=== PATIENT | female | born 2000 | race American Indian/Alaskan Native ===

== ENCOUNTER 2019-12-24 10:02 | Inpatient (IN) | payer MEDICAID ==
[2019-12-24] MEDS ORDERED: Sodium Chloride 0.9% 10 ML Syringe FLUSH PRN (11:25)
[2019-12-24] MEDS ORDERED: Lidocaine 1% 50 ML MDV INJECT PRN (11:25)
[2019-12-24] MEDS ORDERED: Sodium Chloride 0.9% 2.5 ML Syringe FLUSH PRN (11:25)
[2019-12-24] MEDS ORDERED: Water For Irrigation,Sterile 1,000 ML Container IRR PRN (11:25)
[2019-12-24] MEDS ORDERED: Misoprostol 200 MCG Tab PO PRN (11:25)
[2019-12-24] MEDS ORDERED: Methylergonovine 0.2 MG/1 ML Amp IM PRN (11:25)
[2019-12-24] MEDS ORDERED: Nalbuphine 10 MG/1 ML Vial IVPUSH PRN (11:25)
[2019-12-24] MEDS ORDERED: Butorphanol 1 MG/ML SDV IVPUSH PRN (11:25)
[2019-12-24] MEDS ORDERED: Sodium Chloride 0.9% 10 ML SDV IV PRN (11:25)
[2019-12-24] MEDS ORDERED: Carboprost Tromethamine 250 MCG/1 ML Amp IM PRN (11:25)
[2019-12-24] MEDS ORDERED: Tranexamic Acid 1,000 MG in Sodium Chloride 0.9% 100 ML IV PRN (11:25)
[2019-12-24] MEDS ORDERED: Oxytocin/0.9 % Sodium Chloride 30 UNIT/500 ML BAG IV SCH ×2 (11:30→16:30)
[2019-12-24] MEDS ORDERED: Terbutaline 1 MG/ML SDV SUBCUT PRN (16:20)
[2019-12-24] MEDS: Lactated Ringers 1,000 ML IV SCH ×2 (17:15→20:11)
[2019-12-24] MEDS ORDERED: Benzocaine/Menthol 20%-0.5% Spray 78 GM Cannister TOP PRN (21:44)
[2019-12-24] MEDS ORDERED: Bisacodyl 10 MG Supp RECTAL PRN (21:44)
[2019-12-24] MEDS ORDERED: oxyCODONE 5 MG Tab PO PRN (21:44)
[2019-12-24] MEDS ORDERED: Docusate Sodium 100 MG Cap PO PRN (21:44)
[2019-12-24] MEDS ORDERED: Acetaminophen 500 MG Tab PO PRN (21:44)
[2019-12-24] MEDS ORDERED: Witch Hazel Medicated Pads 40/Jar TOP PRN (21:44)
[2019-12-24] MEDS ORDERED: Ibuprofen 800 MG Tab PO PRN (21:44)
[2019-12-24] MEDS ORDERED: Lanolin 100% Cream 7 GM Tube TOP PRN (21:44)
--- NOTE | 2019-12-24 21:51 | PCM.DEL ---
L & D Note - General Info Date of Service: 12/24/19 Mother's Due Date: [birth year] - Delivery Note Labor: Spontaneous, Augmented by Oxytocin Delivery Outcome: Livebirth Infant Delivery Method: Spontaneous Vaginal Delivery-Single Presentation: Vertex Nuchal Cord: None Anesthesia Type: None Episiotomy Type: None Laceration: Labial (bilateral, hemostatic without repair) Placenta: Intact, Spontaneous Cord: 3 Vessels Resuscitation Needed: No : Stimulated, Warmed Score 1 min: 8 Score 5 min: 9 - General Info Date of Service: 12/24/19 - Patient Data Weight - Most Recent: 69.853 kg I&O - Last 24 Hours: Intake & Output 12/24/19 12/24/19 12/24/19 06:59 14:59 22:59 Intake Total 1000 Balance 1000 Lab Results Last 24 Hours: Laboratory Results - last 24 hr 12/24/19 12/24/19 12/24/19 Range/Units 10:20 11:57 11:57 WBC 6.25 (4.0-11.0) K/uL RBC 3.66 L (4.30-5.90) M/uL Hgb 9.5 L (12.0-16.0) g/dL Hct 30.8 L (36.0-46.0) % MCV 84.2 (80.0-98.0) fL MCH 26.0 L (27.0-32.0) pg MCHC 30.8 L (31.0-37.0) g/dL RDW Std Deviation 83.7 H (28.0-62.0) fl RDW Coeff of Dread 29 H (11.0-15.0) % Plt Count 282 (150-400) K/uL MPV 9.30 (7.40-12.00) fL Nucleated RBC % 0.0 /100WBC Nucleated RBCs # 0 K/uL Membrane Rupture POSITIVE Blood Type A POSITIVE Antibody Screen NEGATIVE Med Orders - Current: Current Medications Acetaminophen (Tylenol Extra Strength) 1,000 mg PO Q6H PRN PRN Reason: Pain Benzocaine/Menthol (Dermoplast Pain Relief 20%-0.5% [place]) 78 gm TOP ASDIRECTED PRN PRN Reason: Perineal Comfort Measure Bisacodyl (Dulcolax) 10 mg RECTAL ONETIME PRN PRN Reason: Constipation Butorphanol Tartrate (Stadol) 1 mg IVPUSH Q1H PRN PRN Reason: Pain Last Admin: 12/24/19 19:55 Dose: 1 mg Carboprost Tromethamine (Hemabate Ds) 250 mcg IM ASDIRECTED PRN PRN Reason: Post Hemorrhage Docusate Sodium (Colace) 100 mg PO BID PRN PRN Reason: Constipation Emollient Ointment (Lansinoh Hpa) 0 gm TOP ASDIRECTED PRN PRN Reason: Sore Nipples Ferrous Sulfate (Ferrous Sulfate) 325 mg PO DAILY LAKEISHA Tranexamic Acid 1,000 mg/ (Sodium Chloride) 110 mls @ 660 mls/hr IV ONETIME PRN PRN Reason: Bleeding Lactated Ringer's (Ringers, Lactated) 1,000 mls @ 150 mls/hr IV ASDIRECTED LAKEISHA Last Admin: 12/24/19 20:11 Dose: 150 mls/hr Oxytocin/Sodium Chloride (Oxytocin 30 Unit/500 Ml-Ns) 30 unit in 500 mls @ 500 mls/hr IV TITRATE LAKEISHA Oxytocin/Sodium Chloride (Oxytocin 30 Unit/500 Ml-Ns) 30 unit in 500 mls @ 2 mls/hr IV TITRATE LAKEISHA; Protocol Last Titration: 12/24/19 18:45 Dose: 10 munits/min, 10 mls/hr Ibuprofen (Motrin) 800 mg PO Q8H PRN PRN Reason: Pain Lidocaine HCl (Xylocaine 1%) 50 ml INJECT ONETIME PRN PRN Reason: Laceration repair Methylergonovine Maleate (Methergine) 0.2 mg IM ASDIRECTED PRN PRN Reason: Post Hemorrhage Misoprostol (Cytotec) 200 mcg PO ONETIME PRN PRN Reason: Post Hemorrhage Nalbuphine HCl (Nubain) 10 mg IVPUSH Q1H PRN PRN Reason: Pain (severe 7-10) Oxycodone HCl (Oxycodone) 5 mg PO Q2H PRN PRN Reason: Pain Sodium Chloride (Saline Flush) 10 ml FLUSH ASDIRECTED PRN PRN Reason: Keep Vein Open Sodium Chloride (Saline Flush) 2.5 ml FLUSH ASDIRECTED PRN PRN Reason: Keep Vein Open Sodium Chloride (Normal Saline) 10 ml IV ASDIRECTED PRN PRN Reason: IV Use Sterile Water (Sterile Water For Irrigation) 1,000 ml IRR ASDIRECTED PRN PRN Reason: delivery Last Admin: 12/24/19 21:13 Dose: 1,000 ml Terbutaline Sulfate (Brethine) 0.25 mg SUBCUT ASDIRECTED PRN PRN Reason: Tacysystole Witch Jumana (Tucks) 1 pad TOP ASDIRECTED PRN PRN Reason: comfort care - Problem List & Annotations (1) Vaginal delivery SNOMED Code(s): 900994926 Code(s): O80 - ENCOUNTER FOR FULL-TERM UNCOMPLICATED DELIVERY Status: Acute Current Visit: Yes - Problem List Review Problem List Initiated/Reviewed/Updated: Yes - My Orders Last 24 Hours: My Active Orders 12/24/19 21:44 Patient Status [ADT] Routine May Shower [RC] ASDIRECTED Notify Provider Vital Signs [RC] ASDIRECTED Up ad Ariadna [RC] ASDIRECTED Vital Signs [RC] PER UNIT ROUTINE Acetaminophen [Tylenol Extra Strength] 1,000 mg PO Q6H PRN Benzocaine/Menthol [Dermoplast Pain Relief 20%-0.5% [place]] 78 gm TOP ASDIRECTED PRN Docusate Sodium [Colace] 100 mg PO BID PRN Ibuprofen [Motrin] 800 mg PO Q8H PRN Lanolin [Lansinoh HPA] See Dose Instructions TOP ASDIRECTED PRN bisacodyL [Dulcolax] 10 mg RECTAL ONETIME PRN oxyCODONE 5 mg PO Q2H PRN witch Jumana [Tucks] 1 pad TOP ASDIRECTED PRN Assess Lochia [WOMSER] Per Unit Routine Assess Uterine Involution [WOMSER] Per Unit Routine Breast Pump [WOMSER] Per Unit Routine Ice Therapy [OM.PC] Per Unit Routine Perineal Care [OM.PC] Per Unit Routine Peripheral IV Discontinue [OM.PC] Routine Sitz Bath [OM.PC] Per Unit Routine 12/24/19 21:45 Cooling Warming Measures [RC] ASDIRECTED 12/24/19 Dinner Regular Diet [DIET] 12/25/19 05:11 HEMOGLOBIN/HEMATOCRIT,HH [HEME] Timed 12/25/19 09:00 Ferrous Sulfate 325 mg PO DAILY - Assessment Assessment:: 19yo s/p at 37w1d - Plan Plan:: Admit to unit for routine care. Continue iron supplementation for anemia. Adoptive mother to breastfeed.
--- NOTE | 2019-12-24 22:43 | OR ---
SURGEON: Maddie Tyler MD DATE OF PROCEDURE: 12/24/2019 PREOPERATIVE DIAGNOSES: 1. A 19-year-old, G3, P 1-0-1-1, at 37 weeks and 1 day's gestation. 2. Spontaneous rupture of membranes. 3. Anemia. 4. Group B Streptococcus negative. POSTOPERATIVE DIAGNOSES: 1. A 19-year-old, G3, P 2-0-1-2, status post spontaneous vaginal delivery at 37 weeks and 1 day's gestation. 2. Anemia. 3. Group B Streptococcus negative. PROCEDURE: Spontaneous vaginal delivery. ANESTHESIA: None. PRIMARY SURGEON: Maddie Tyler MD ESTIMATED BLOOD LOSS: 300 mL. FINDINGS: Live female in cephalic presentation. score of 8 and 9 at one and five minutes respectively. Weight pending. Bilateral labial lacerations, hemostatic without repair. Placenta intact and with 3-vessel cord. Baby up for adoption. INDICATIONS: This is a 19-year-old, G3, P 1-0-1-1, who presented at 37 weeks and 1 day's gestation complaining of leakage of fluid. Upon presentation, AmniSure was found to be positive. She was 1 to 2 cm dilated. After several hours, she was started on Pitocin for augmentation of labor. She progressed to complete cervical dilation, and I was called to the room. DESCRIPTION OF PROCEDURE: I arrived to the room with the skull at +4 station. The head was delivered. The patient pushed to a spontaneous vaginal delivery of live female infant. The head was delivered followed quickly by the shoulders and remainder of the body. The 's nose and mouth were suctioned with bulb suction, and the infant dried and stimulated on my lap. After approximately 30 seconds, the cord was clamped and cut. The infant was handed off to the awaiting nurse. The perineum was inspected and bilateral labial lacerations were noted. These were hemostatic without repair. The placenta then delivered via the Tucker-Marie maneuver, intact and with 3-vessel cord. Fundus was firm below the umbilicus. The patient and baby tolerated the delivery well. [id number] / MODL /[id number]
[2019-12-25] MEDS ORDERED: Misoprostol 200 MCG Tab RECTAL STA (01:52)
[2019-12-25] MEDS ORDERED: Misoprostol 200 MCG Tab ONE (01:54)
[2019-12-25] MEDS: Lactated Ringers 1,000 ML IV SCH (02:41)
[2019-12-25] MEDS ORDERED: Methylergonovine 0.2 MG Tab ONE (02:59)
--- NOTE | 2019-12-25 03:01 | PCM.SN.2 ---
- Free Text/Narrative Note: Notified by RN of uterine atony with 2 large clots. Given 0.2mg IM Methergine and subsequent 1000mcg CO Misoprostol. Continued moderate lochia, given 1g IV Tranexamic acid. Blood pressure 119/58. Bimanual exam: Uterus initially atonic, with subsequent increase in tone during bimanual exam. Reevaluated for perineal lacerations, bilateral labial hemostatic. Stat H&H 9.5/31.0, unchanged from admit. Will give scheduled oral Methergine 0.2mg every 6 hours. Patient up to void, as full bladder can impact uterine tone. Will recheck H&H at 0500, sooner if heavy bleeding.
[2019-12-25] MEDS: Methylergonovine 0.2 MG Tab PO SCH ×4 (03:03→23:26)
[2019-12-25] MEDS ORDERED: Ferrous Sulfate 325 MG Tab PO SCH (09:00)
--- NOTE | 2019-12-25 10:39 | PCM.PNPP ---
- General Info Date of Service: 12/25/19 Subjective Update: Denies dizziness with ambulation. Bleeding has decreased significantly since 3AM. Functional Status: Reports: Pain Controlled, Tolerating Diet, Ambulating, Urinating - Review of Systems General: Reports: No Symptoms HEENT: Reports: No Symptoms Pulmonary: Reports: No Symptoms Cardiovascular: Reports: No Symptoms Gastrointestinal: Reports: No Symptoms Genitourinary: Reports: No Symptoms Musculoskeletal: Reports: No Symptoms Skin: Reports: No Symptoms Neurological: Reports: No Symptoms Psychiatric: Reports: No Symptoms - Patient Data Vital Signs - Most Recent: Last Vital Signs Temp 36.3 C 12/25/19 08:00 Pulse 78 12/25/19 08:00 Resp 14 12/25/19 08:00 BP 109/68 12/25/19 08:00 Pulse Ox 97 12/25/19 08:00 Weight - Most Recent: 69.853 kg I&O - Last 24 Hours: Intake & Output 12/24/19 12/25/19 12/25/19 22:59 06:59 14:59 Intake Total 1700 600 Balance 1700 600 Lab Results - Last 24 Hours: Laboratory Results - last 24 hr 12/24/19 12/24/19 12/24/19 Range/Units 10:20 11:57 11:57 WBC 6.25 (4.0-11.0) K/uL RBC 3.66 L (4.30-5.90) M/uL Hgb 9.5 L (12.0-16.0) g/dL Hct 30.8 L (36.0-46.0) % MCV 84.2 (80.0-98.0) fL MCH 26.0 L (27.0-32.0) pg MCHC 30.8 L (31.0-37.0) g/dL RDW Std Deviation 83.7 H (28.0-62.0) fl RDW Coeff of Dread 29 H (11.0-15.0) % Plt Count 282 (150-400) K/uL MPV 9.30 (7.40-12.00) fL Nucleated RBC % 0.0 /100WBC Nucleated RBCs # 0 K/uL Membrane Rupture POSITIVE Blood Type A POSITIVE Antibody Screen NEGATIVE 12/25/19 12/25/19 Range/Units 02:46 06:00 WBC (4.0-11.0) K/uL RBC (4.30-5.90) M/uL Hgb 9.5 L 8.9 L (12.0-16.0) g/dL Hct 31.0 L 28.3 L (36.0-46.0) % MCV (80.0-98.0) fL MCH (27.0-32.0) pg MCHC (31.0-37.0) g/dL RDW Std Deviation (28.0-62.0) fl RDW Coeff of Dread (11.0-15.0) % Plt Count (150-400) K/uL MPV (7.40-12.00) fL Nucleated RBC % /100WBC Nucleated RBCs # K/uL Membrane Rupture Blood Type Antibody Screen Med Orders - Current: Current Medications Acetaminophen (Tylenol Extra Strength) 1,000 mg PO Q6H PRN PRN Reason: Pain Benzocaine/Menthol (Dermoplast Pain Relief 20%-0.5% [place]) 78 gm TOP ASDIRECTED PRN PRN Reason: Perineal Comfort Measure Last Admin: 12/24/19 22:45 Dose: 1 canister Bisacodyl (Dulcolax) 10 mg RECTAL ONETIME PRN PRN Reason: Constipation Butorphanol Tartrate (Stadol) 1 mg IVPUSH Q1H PRN PRN Reason: Pain Last Admin: 12/24/19 19:55 Dose: 1 mg Carboprost Tromethamine (Hemabate Ds) 250 mcg IM ASDIRECTED PRN PRN Reason: Post Hemorrhage Docusate Sodium (Colace) 100 mg PO BID PRN PRN Reason: Constipation Last Admin: 12/24/19 22:45 Dose: 100 mg Emollient Ointment (Lansinoh Hpa) 0 gm TOP ASDIRECTED PRN PRN Reason: Sore Nipples Ferrous Sulfate (Ferrous Sulfate) 325 mg PO DAILY LAKEISHA Last Admin: 12/25/19 09:07 Dose: 325 mg Tranexamic Acid 1,000 mg/ (Sodium Chloride) 110 mls @ 660 mls/hr IV ONETIME PRN PRN Reason: Bleeding Last Admin: 12/25/19 02:29 Dose: 660 mls/hr Lactated Ringer's (Ringers, Lactated) 1,000 mls @ 150 mls/hr IV ASDIRECTED [place]ISHA Last Infusion: 12/25/19 03:10 Dose: 125 mls/hr Oxytocin/Sodium Chloride (Oxytocin 30 Unit/500 Ml-Ns) 30 unit in 500 mls @ 500 mls/hr IV TITRATE LA[place]ISHA Oxytocin/Sodium Chloride (Oxytocin 30 Unit/500 Ml-Ns) 30 unit in 500 mls @ 2 mls/hr IV TITRATE LAKEISHA; Protocol Last Titration: 12/24/19 21:26 Dose: 500 mls/hr Ibuprofen (Motrin) 800 mg PO Q8H PRN PRN Reason: Pain Lidocaine HCl (Xylocaine 1%) 50 ml INJECT ONETIME PRN PRN Reason: Laceration repair Methylergonovine Maleate (Methergine) 0.2 mg IM ASDIRECTED PRN PRN Reason: Post Hemorrhage Last Admin: 12/25/19 00:43 Dose: 0.2 mg Methylergonovine Maleate (Methergine) 0.2 mg PO Q6H LA[place]ISHA Stop: 12/26/19 03:00 Last Admin: 12/25/19 09:09 Dose: 0.2 mg Misoprostol (Cytotec) 200 mcg PO ONETIME PRN PRN Reason: Post Hemorrhage Nalbuphine HCl (Nubain) 10 mg IVPUSH Q1H PRN PRN Reason: Pain (severe 7-10) Oxycodone HCl (Oxycodone) 5 mg PO Q2H PRN PRN Reason: Pain Sodium Chloride (Saline Flush) 10 ml FLUSH ASDIRECTED PRN PRN Reason: Keep Vein Open Sodium Chloride (Saline Flush) 2.5 ml FLUSH ASDIRECTED PRN PRN Reason: Keep Vein Open Sodium Chloride (Normal Saline) 10 ml IV ASDIRECTED PRN PRN Reason: IV Use Sterile Water (Sterile Water For Irrigation) 1,000 ml IRR ASDIRECTED PRN PRN Reason: delivery Last Admin: 12/24/19 21:13 Dose: 1,000 ml Terbutaline Sulfate (Brethine) 0.25 mg SUBCUT ASDIRECTED PRN PRN Reason: Tacysystole Witch Jumana (Tucks) 1 pad TOP ASDIRECTED PRN PRN Reason: comfort care Last Admin: 12/24/19 22:45 Dose: 1 tub Discontinued Medications Methylergonovine Maleate (Methergine) Confirm Administered Dose 0.2 mg .ROUTE .STK-MED ONE Stop: 12/25/19 03:00 Misoprostol (Cytotec) 1,000 mcg RECTAL STAT STA Stop: 12/25/19 01:53 Last Admin: 12/25/19 01:58 Dose: 1,000 mcg Misoprostol (Cytotec) Confirm Administered Dose 1,000 mcg .ROUTE .STK-MED ONE Stop: 12/25/19 01:55 - Interaction Infant Disposition, : at Bedside Feeding: Other (see below) (baby adopted) Support Person: Other (see below) - Recovery Exam Fundal Tone: Firm Fundal Level: At Umbilicus Fundal Placement: Midline Lochia Amount: Scant, Small Lochia Color: Rubra/Red Other Perinuem Description: bilateral labial lacerations WNL Bladder Status: Voiding Urinary Elimination: Voided - Exam General: Alert, Oriented Neck: Supple Lungs: Normal Respiratory Effort GI/Abdominal Exam: Soft, Non-Tender Extremities: No Pedal Edema Skin: Warm, Dry, Intact Neurological: No New Focal Deficit Psy/Mental Status: Alert, Normal Affect, Normal Mood - Problem List & Annotations (1) Vaginal delivery SNOMED Code(s): 105408449 Code(s): O80 - ENCOUNTER FOR FULL-TERM UNCOMPLICATED DELIVERY Status: Acute Current Visit: Yes - Problem List Review Problem List Initiated/Reviewed/Updated: Yes - My Orders Last 24 Hours: My Active Orders 12/24/19 21:44 Patient Status [ADT] Routine May Shower [RC] ASDIRECTED Up ad Ariadna [RC] ASDIRECTED Vital Signs [RC] PER UNIT ROUTINE Acetaminophen [Tylenol Extra Strength] 1,000 mg PO Q6H PRN Benzocaine/Menthol [Dermoplast Pain Relief 20%-0.5% [place]] 78 gm TOP ASDIRECTED PRN Docusate Sodium [Colace] 100 mg PO BID PRN Ibuprofen [Motrin] 800 mg PO Q8H PRN Lanolin [Lansinoh HPA] See Dose Instructions TOP ASDIRECTED PRN bisacodyL [Dulcolax] 10 mg RECTAL ONETIME PRN oxyCODONE 5 mg PO Q2H PRN witch Jumana [Tucks] 1 pad TOP ASDIRECTED PRN Assess Lochia [WOMSER] Per Unit Routine Assess Uterine Involution [WOMSER] Per Unit Routine Breast Pump [WOMSER] Per Unit Routine Ice Therapy [OM.PC] Per Unit Routine Perineal Care [OM.PC] Per Unit Routine Peripheral IV Discontinue [OM.PC] Routine Sitz Bath [OM.PC] Per Unit Routine 12/24/19 Dinner Regular Diet [DIET] 12/25/19 03:00 Methylergonovine [Methergine] 0.2 mg PO Q6H 12/25/19 09:00 Ferrous Sulfate 325 mg PO DAILY 12/25/19 10:36 Ready for Discharge [RC] PER UNIT ROUTINE - Assessment Assessment:: 19yo s/p at 37w1d, PPD#1 - Plan Plan:: Patient desires discharge home tonight if possible. Reviewed discharge instructions. Cold compresses and tight-fitting bra to help decrease milk supply.
== END 2019-12-25 23:59 | disposition home or self-care (01) | DRG 807 ==
LOC: MW.OBCHECK 10:02 → MW.OB 10:03 → MW.OBCHECK 11:27 → OBSVTOIN 21:25 → MW.OB 12-25 00:25
PROVIDERS: ADMIT Obstetrics & Gynecology; ATTEND Obstetrics & Gynecology
PROC: 10E0XZZ Delivery of Products of Conception, External Approach (ICD-10-PCS; principal; 2019-12-24)
PROC: 0UQMXZZ Repair Vulva, External Approach (ICD-10-PCS; 2019-12-24)
DX: O99.02 Anemia complicating childbirth (principal); Z37.0 Single live birth; D64.9 Anemia, unspecified; O70.0 First degree perineal laceration during delivery; Z3A.37 37 weeks gestation of pregnancy
CPT/HCPCS: 36415; 59025; 59409; 84112; 85014; 85018; 85027; 86592; 86593; 86850; 86900; 86901; A9270-GY; J0595; J2210; J2590; J7050; J7120